=== PATIENT | female | born 1960 | race African-American/Black ===

== ENCOUNTER 2018-05-24 10:34 | Emergency (ER) | payer OTHER, SELFPAY ==
[2018-05-24] MEDS ORDERED: MORPHINE 4 MG/ML SYR ONE (11:03)
[2018-05-24] MEDS ORDERED: ONDANSETRON 4 MG/2 ML VIAL ONE (11:03)
[2018-05-24 11:16] LABS: Absolute Lymphocytes (CBC) 3.8 K/uL (0.7-4.9); Absolute Monocytes 0.6 K/uL (0.1-1.3); Absolute Neutrophil 4.1 K/uL (1.8-8.0); Eosinophils % 1.8 % (0-4.4); Hematocrit 38.5 % (36.0-45.0); Lymphocytes % 43.8 % (15.3-44.8); MCH 30.3 pg (27.0-35.0); MCV 88.9 fL (80-100); MPV 9.6 fL (7.6-11.3); Monocytes % 6.8 % (3.3-12.3); RBC Red Blood Cell Count 4.33 M/uL (3.86-4.86)
[2018-05-24 11:19] LABS: Protime INR 1.05
[2018-05-24 11:22] LABS: BUN Blood Urea Nitrogen 17 mg/dL (7-18); Bicarbonate 31 mmol/L (21-32); Glucose Level 101 mg/dL (74-106); Potassium 3.7 mmol/L (3.5-5.1); Sodium Level 144 mmol/L (136-145)
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
[2018-05-24] MEDS ORDERED: CYCLOBENZAPRINE 10 MG TAB ONE (12:53)
[2018-05-24] MEDS ORDERED: KETOROLAC 30 MG/ML INJ ONE (12:53)
[2018-05-24 13:18] LABS: Urine Blood TRACE (NEG); Urine Glucose NEGATIVE (NEG); Urine Protein NEGATIVE (NEG)
== END 2018-05-24 12:56 | disposition home or self-care (01) ==
LOC: ER 10:34
DX: M54.5 Low back pain (principal); V79.59XA Passenger on bus injured in collision with other motor vehicles in traffic accident, initial encounter; Y93.89 Activity, other specified; Y92.410 Unspecified street and highway as the place of occurrence of the external cause
CPT/HCPCS: 36415; 70450; 71045; 71260; 72125; 72170; 74177; 80048; 81003; 85025; 85610; 85730; 86850; 86900; 86901; 96374; 96375; 99285; J2405; Q9967